=== PATIENT | female | born 1945 | race Caucasian/White ===

== ENCOUNTER 2019-04-16 11:51 | Emergency (ER) | payer MEDICARE ==
[~2019-04-16] VITALS: Ht 170.2 cm; Wt 72.6 kg
--- NOTE | 2019-04-16 11:58 | NUR ---
Patient to ER bed 06 for evaluation. Side rails up.
[2019-04-16 11:59] VITALS: BP_SYST 161
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
--- NOTE | 2019-04-16 12:15 | NUR ---
ER Dr. Lee at bedside examining patient.
[2019-04-16] MEDS ORDERED: HYDROcodone/ACETAMIN 5-325 MG TAB (NORCO/ VICODIN) PO ONE (13:45)
[2019-04-16 13:50] VITALS: BP_SYST 147
--- NOTE | 2019-04-16 13:50 | NUR ---
Patient given written and verbal discharge instructions and verbalizes understanding. ER MD discussed with patient the results and treatment provided. Patient in stable condition. ID arm band removed. Rx of [place] given. Patient educated on pain management and to follow up with PMD. Pain Scale 6/10 tolerable for patient . Opportunity for questions provided and answered. Medication side effect fact sheet provided.
== END 2019-04-16 13:50 | disposition home or self-care (01) ==
LOC: SED 11:51
DX: S32.591A Other specified fracture of right pubis, initial encounter for closed fracture (principal); E78.5 Hyperlipidemia, unspecified; I10 Essential (primary) hypertension; Z88.7 Allergy status to serum and vaccine; V03.09XA Pedestrian with other conveyance injured in collision with car, pick-up truck or van in nontraffic accident, initial encounter; Y93.89 Activity, other specified; Y92.481 Parking lot as the place of occurrence of the external cause; Y99.8 Other external cause status
CPT/HCPCS: 72131; 72192-TC; 99284

== ENCOUNTER 2024-02-11 05:30 | Day surgery (SDC) | payer OTHER ==
[~2024-02-11] VITALS: Ht 162.6 cm; Wt 76.4 kg
[2024-02-11] MEDS ORDERED: ACETAMINOPHEN 500 MG TABLET ONE (05:39)
[2024-02-11] MEDS ORDERED: CEFAZOLIN SOD 2 GM in D5W 50 ML IV ONE (06:00)
[2024-02-11] MEDS ORDERED: ACETAMINOPHEN 500 MG TABLET PO ONE (06:00)
[2024-02-11] MEDS ORDERED: ePHEDrine sulfate 50 MG/ML VIAL ONE (07:05)
[2024-02-11] MEDS ORDERED: HYDROmorphone 2 MG/ML VIAL IVP PRN (08:00)
[2024-02-11] MEDS ORDERED: ONDANSETRON HCL 4 MG/2 ML VIAL IVP PRN ×2 (08:00→11:45)
[2024-02-11] MEDS ORDERED: NALOXONE HCL 0.4 MG/ML AMP (NARCAN) ONE (08:22)
[2024-02-11] MEDS ORDERED: ACETAMINOPHEN I.V. 1000 MG 100 ML IV ONE (09:11)
[2024-02-11] MEDS ORDERED: HYDROmorphone 1 MG/ML INJ. CARTRIDGE ONE ×2 (10:30→12:02)
[2024-02-11] MEDS: HYDROmorphone 1 MG/ML INJ. CARTRIDGE IVP PRN (10:30)
[2024-02-11] MEDS ORDERED: oxyCODONE HCL 5 MG TABLET PO ONE (10:30)
[2024-02-11] MEDS ORDERED: HYDROmorphone 1 MG/ML INJ. CARTRIDGE IVP PRN ×3 (11:00)
[2024-02-11] MEDS ORDERED: LORATADINE 10 MG TABLET PO PRN (11:00)
[2024-02-11] MEDS ORDERED: oxyCODONE HCL 5 MG TABLET PO PRN ×2 (11:00)
[2024-02-11] MEDS ORDERED: BISACODYL 10 MG/SUPPOSITORY RC PRN (12:45)
[2024-02-11] MEDS ORDERED: LACTULOSE 20 GM/30 ML UDC PO PRN (12:45)
[2024-02-11] MEDS ORDERED: METOCLOPRAMIDE HCL 10 MG/2 ML VIAL IVP PRN (12:45)
[2024-02-11] MEDS ORDERED: CITA10SO PO (13:03)
[2024-02-11] MEDS ORDERED: AMLO2.5T2 PO (13:03)
[2024-02-11] MEDS ORDERED: LOSA-415 PO (13:03)
[2024-02-11] MEDS ORDERED: ROSU10TA2 PO (13:03)
[2024-02-11] MEDS ORDERED: SYN50 PO (13:03)
[2024-02-11] MEDS ORDERED: ASPI-989 PO (13:03)
[2024-02-11] MEDS ORDERED: METO75TA PO (13:03)
[2024-02-11] MEDS ORDERED: KETOROLAC TROMETHAMINE 30 MG VIAL ONE (13:27)
[2024-02-11] MEDS: KETOROLAC TROMETHAMINE 15 MG VIAL IVP ONE (13:30)
[2024-02-11] MEDS: LIDOCAINE PATCH 5% 1 EA TP ONE (14:00)
[2024-02-11 15:30] VITALS: BP_SYST 110; PULSE 73; RESP 18; TEMP 97.4; O2SAT 98
[2024-02-11 15:43] VITALS: BP_SYST 109; PULSE 68; RESP 18; TEMP 97; O2SAT 96
[2024-02-11] MEDS: LR 1,000 ML IV SCH (16:10)
[2024-02-11 20:00] VITALS: BP_SYST 119; PULSE 76; RESP 20; TEMP 98.5; O2SAT 2; O2SAT 95
[2024-02-11] MEDS: DIPHENHYDRAMINE HCL 25 MG CAPSULE PO PRN (23:04)
[2024-02-11] MEDS: ACETAMINOPHEN 500 MG TABLET PO SCH (23:05)
[2024-02-11] MEDS: SENNOSIDES/DOCUSATE SODIUM 1 TAB TABLET(SENOKOT-S) PO SCH (23:06)
[2024-02-11] MEDS: traMADol HCL HCL 50 MG TABLET (ULTRAM) PO PRN (23:07)
[2024-02-12 00:30] VITALS: BP_SYST 121; PULSE 83; RESP 18; TEMP 98.2; O2SAT 96
[2024-02-12] MEDS: KETOROLAC TROMETHAMINE 10 MG TABLET (TORADOL) PO SCH (06:00)
[2024-02-12 08:49] VITALS: BP_SYST 118; PULSE 70; RESP 15; TEMP 98
[2024-02-12 10:42] VITALS: BP_SYST 118; PULSE 70; RESP 18; TEMP 98
[2024-02-12] MEDS ORDERED: CELECOXIB 200 MG CAPSULE PO SCH (11:00)
== END 2024-02-12 11:30 | disposition home or self-care (01) ==
LOC: SMU 05:30 → SDS 05:30 → SMU 13:43 → SDS 02-12 11:30
PROVIDERS: ATTEND Orthopaedic Surgery Sports Medicine
DX: M19.011 Primary osteoarthritis, right shoulder (principal); M25.511 Pain in right shoulder; I10 Essential (primary) hypertension; E78.5 Hyperlipidemia, unspecified; I48.91 Unspecified atrial fibrillation; E03.9 Hypothyroidism, unspecified; Z91.040 Latex allergy status; Z91.048 Other nonmedicinal substance allergy status; J45.909 Unspecified asthma, uncomplicated; Z88.7 Allergy status to serum and vaccine; Z90.710 Acquired absence of both cervix and uterus; Z95.4 Presence of other heart-valve replacement; Z98.890 Other specified postprocedural states; Z79.82 Long term (current) use of aspirin; Z79.890 Hormone replacement therapy; Z79.899 Other long term (current) drug therapy
CPT/HCPCS: 87081; 23472; 88304; 88311; 64415; 96379; Q0163; J3490 ×3; J0690; J0696; J1885; J2765; J2405; J2704; J3370; J3010; J1170; J7060 ×2; J7120; C1776 ×2; J0131; J2710; 76000; J2310